=== PATIENT | male | born 1940 | race Caucasian/White ===

== ENCOUNTER → 2022-10-18 11:20 | Outpatient (BNVA) | payer MEDICARE, SELFPAY | PROVIDERS: PCP Neuromusculoskeletal Medicine & OMM; Referring Provider Neuromusculoskeletal Medicine & OMM; Visit Provider Surgery | DX: L97.311 Non-pressure chronic ulcer of right ankle limited to breakdown of skin (principal); R60.0 Localized edema | CPT/HCPCS: 99202 ==

== ENCOUNTER → 2022-10-25 10:40 | Outpatient (BNVA) | payer MEDICARE, SELFPAY | PROVIDERS: PCP Neuromusculoskeletal Medicine & OMM; Referring Provider Neuromusculoskeletal Medicine & OMM; Visit Provider Surgery | DX: Z51.89 Encounter for other specified aftercare (principal); L98.9 Disorder of the skin and subcutaneous tissue, unspecified | CPT/HCPCS: 11104; 99213 ==

== ENCOUNTER 2022-10-25 11:18 | Outpatient (REF) | payer MEDICARE, SELFPAY ==
--- NOTE | 2022-10-25 11:15 | SKI_PTH ---
PATIENT: Adrian Kelsey LOC: [facility] U#:[id number] AGE/SX: 81/M ROOM: RE10/25/[address]: Bev Wan MD : 1940 BED: DIS: 10/25/2022 SPEC #: [id number] RECD: 10/25/22 13:08 STATUS: MARTY REQ #: [id number] ANGELLA: 10/25/22 11:[address]: Bev Wan DEPT: Surgical Specimen RECD BY: Emily Hodge ENTERED: 10/25/22 13:09 SP TYPE: BELEN DENNIS DR: Juan Daniel Hogue Tissues: 1 - SKIN BIOPSY(SHAVE/PUNCH) Procedures: SKIN LEVEL 4 Comments: [id number]
== END 2022-10-25 11:19 | disposition home or self-care (01) ==
LOC: LBN 11:18
PROVIDERS: PCP Neuromusculoskeletal Medicine & OMM; Visit Provider Surgery
DX: L98.9 Disorder of the skin and subcutaneous tissue, unspecified (principal)
CPT/HCPCS: 88305

== ENCOUNTER → 2022-11-02 14:42 | Outpatient (BNVA) | payer MEDICARE, SELFPAY | PROVIDERS: PCP Neuromusculoskeletal Medicine & OMM; Referring Provider Neuromusculoskeletal Medicine & OMM; Visit Provider Surgery | DX: S81.801D Unspecified open wound, right lower leg, subsequent encounter; X58.XXXD Exposure to other specified factors, subsequent encounter | CPT/HCPCS: 97605; 99212 ==

== ENCOUNTER → 2022-11-11 13:56 | Outpatient (BNVA) | payer MEDICARE, SELFPAY | PROVIDERS: PCP Neuromusculoskeletal Medicine & OMM; Referring Provider Neuromusculoskeletal Medicine & OMM; Visit Provider Physical Therapy Assistant | DX: S81.801D Unspecified open wound, right lower leg, subsequent encounter (principal); X58.XXXD Exposure to other specified factors, subsequent encounter | CPT/HCPCS: 11042 ==

== ENCOUNTER → 2022-11-16 10:22 | Outpatient (BNVA) | payer MEDICARE, SELFPAY | PROVIDERS: PCP Neuromusculoskeletal Medicine & OMM; Referring Provider Neuromusculoskeletal Medicine & OMM; Visit Provider Physical Therapy Assistant | DX: S81.801D Unspecified open wound, right lower leg, subsequent encounter (principal); X58.XXXD Exposure to other specified factors, subsequent encounter | CPT/HCPCS: 15002; 15271; Q4196 ==

== ENCOUNTER → 2022-11-22 14:30 | Outpatient (BNVA) | payer MEDICARE, SELFPAY | PROVIDERS: PCP Neuromusculoskeletal Medicine & OMM; Referring Provider Neuromusculoskeletal Medicine & OMM; Visit Provider Surgery | DX: S81.801D Unspecified open wound, right lower leg, subsequent encounter (principal); X58.XXXD Exposure to other specified factors, subsequent encounter | CPT/HCPCS: 15002; 15271; 99212; Q4196 ==

== ENCOUNTER → 2022-11-29 08:40 | Outpatient (BNVA) | payer MEDICARE, SELFPAY | PROVIDERS: PCP Neuromusculoskeletal Medicine & OMM; Referring Provider Neuromusculoskeletal Medicine & OMM; Visit Provider Surgery | DX: L97.311 Non-pressure chronic ulcer of right ankle limited to breakdown of skin (principal) | CPT/HCPCS: 15002; 15271; 99212; Q4196 ==

== ENCOUNTER → 2022-12-02 08:17 | Outpatient (BNVA) | payer MEDICARE, SELFPAY | PROVIDERS: PCP Neuromusculoskeletal Medicine & OMM; Referring Provider Neuromusculoskeletal Medicine & OMM; Visit Provider Surgery | DX: L97.311 Non-pressure chronic ulcer of right ankle limited to breakdown of skin (principal) | CPT/HCPCS: 15002; 15271; 99212; Q4196 ==

== ENCOUNTER → 2022-12-09 08:09 | Outpatient (BNVA) | payer MEDICARE, SELFPAY | PROVIDERS: PCP Neuromusculoskeletal Medicine & OMM; Referring Provider Neuromusculoskeletal Medicine & OMM; Visit Provider Surgery | DX: S81.801D Unspecified open wound, right lower leg, subsequent encounter (principal); X58.XXXD Exposure to other specified factors, subsequent encounter | CPT/HCPCS: 99212; 99213 ==

== ENCOUNTER → 2022-12-16 08:41 | Outpatient (BNVA) | payer MEDICARE, SELFPAY | PROVIDERS: PCP Neuromusculoskeletal Medicine & OMM; Referring Provider Neuromusculoskeletal Medicine & OMM; Visit Provider Surgery | DX: S81.801D Unspecified open wound, right lower leg, subsequent encounter (principal); X58.XXXD Exposure to other specified factors, subsequent encounter; L97.311 Non-pressure chronic ulcer of right ankle limited to breakdown of skin | CPT/HCPCS: 15002; 15271; 99212; Q4196 ==

== ENCOUNTER → 2022-12-22 13:40 | Outpatient (BNVA) | payer MEDICARE, SELFPAY | PROVIDERS: PCP Neuromusculoskeletal Medicine & OMM; Referring Provider Neuromusculoskeletal Medicine & OMM; Visit Provider Physical Therapy Assistant | DX: S81.801D Unspecified open wound, right lower leg, subsequent encounter (principal); X58.XXXD Exposure to other specified factors, subsequent encounter | CPT/HCPCS: 11042 ==

== ENCOUNTER → 2022-12-29 08:34 | Outpatient (BNVA) | payer MEDICARE, SELFPAY | PROVIDERS: PCP Neuromusculoskeletal Medicine & OMM; Referring Provider Neuromusculoskeletal Medicine & OMM; Visit Provider Physical Therapy Assistant | DX: S81.801D Unspecified open wound, right lower leg, subsequent encounter (principal); X58.XXXD Exposure to other specified factors, subsequent encounter | CPT/HCPCS: 99213 ==